=== PATIENT | female | born 1955 ===

== ENCOUNTER 2017-01-16 02:46 | Emergency (ER) | payer OTHER ==
[2017-01-16 02:55] VITALS: BMI 41.1
[2017-01-16 02:59] VITALS: RESP 16; TEMP 98
--- NOTE | 2017-01-16 03:09 | ED PDOC ---
HPI: Psych/Substance Abuse Time Seen by Provider: 01/16/17 03:02 Chief Complaint (Nursing): Anxiety Chief Complaint (Provider): anxiety History Per: Patient, EMS Additional Complaint(s): BIBA for anxiety. Patient states she has no more ativan and feels very anxious. She admits to taking more of her ativan that was is actually prescribed so she is out of her meds sooner than she should be. Patient denies any suicidal or homicidal ideation, no chest pain, SOB or MONACO. Past Medical History Reviewed: Historical Data, Nursing Documentation, Vital Signs Vital Signs: Last Vital Signs Temp 98.0 F 01/16/17 02:55 Pulse 115 H 01/16/17 02:55 Resp 16 01/16/17 02:55 BP 180/107 H 01/16/17 02:55 Pulse Ox 100 01/16/17 02:55 - Medical History PMH: Anemia, Anxiety, Asthma, Bipolar Disorder, Depression, Diabetes, Emphysema , HTN, Hypercholesterolemia, Hyperlipidemia, Schizophrenia - Family History Family History: States: No Known Family Hx - Living Arrangements Living Arrangements: With Family - Social History Current smoker - smoking cessation education provided: No Alcohol: None Drugs: Denies - Home Medications Home Medications: Ambulatory Orders Medication Instructions Recorded Enalapril Maleate 10 mg PO DAILY 08/22/14 amLODIPine [Norvasc] 10 mg PO DAILY 08/22/14 metFORMIN [glucOPHAGE] 500 mg PO BID 08/22/14 traZODone [Desyrel] 200 mg PO HS 08/22/14 Benztropine [Cogentin] 2 mg PO TID #4 tab 10/08/15 Simvastatin 20 mg PO HS 10/08/15 Albuterol HFA [Ventolin HFA 90 2 puff IH Q4H PRN 11/26/15 mcg/actuation (8 g)] Esomeprazole Magnesium [Nexium] 40 mg PO DAILY 05/13/16 LORazepam [Ativan] 2 mg PO BID 05/13/16 Montelukast [Singulair] 10 mg PO HS 05/13/16 Mv,Min10/Folic Acid/D3/Ala/Lut 1 tab PO DAILY 05/13/16 [Strovite One Caplet] Risperidone [Risperdal] 4 mg PO HS 05/13/16 Azithromycin [Zithromax] 500 mg PO DAILY #5 tab 05/16/16 - Allergies Allergies/Adverse Reactions: Allergies Allergy/AdvReac Type Severity Reaction Status Date / Time No Known Allergies Allergy Verified 01/16/17 02:55 Review of Systems ROS Statement: Except As Marked, All Systems Reviewed And Found Negative Psych: Positive for: Anxiety (out of ativan). Negative for: Psychosis, Suicidal ideation Physical Exam - Reviewed Nursing Documentation Reviewed: Yes Vital Signs Reviewed: Yes - Physical Exam Appears: Positive for: Well, Non-toxic, No Acute Distress Skin: Positive for: Normal Color. Negative for: Rash Eye Exam: Positive for: Normal appearance Cardiovascular/Chest: Positive for: Regular Rate, Rhythm Respiratory: Positive for: Normal Breath Sounds Neurologic/Psych: Positive for: Alert, Oriented - ECG O2 Sat by Pulse Oximetry: 100 Pulse Ox Interpretation: Normal Medical Decision Making Medical Decision Makin61 year old with anxiety, out of ativan Rx history indicates patient filled 30 day supply of 2 mg PO ativan on 12/27/16 but she is out of the meds. She admits to taking more than prescribed which is why she is out of her meds earlier that she should be Plan: 2 mg PO ativan dose Crisis consult offered, but patient declined. She denies SI/HI. 4:15 am: Vital signs improved. Patient feels better, she is stable for discharge. She was advised to follow up RONAL with her psychiatrist. Disposition - Clinical Impression Clinical Impression: Anxiety - Patient ED Disposition Is Patient to be Admitted: No Counseled Patient/Family Regarding: Diagnosis, Need For Followup - Disposition Referrals: [facility] [Outside] Disposition: Routine/Home Disposition Time: 04:14 Condition: STABLE Additional Instructions: Follow-up as soon as possible with your psychiatrist. Instructions: Anxiety (ED) Forms: [employer] (Turkmen) Print Language: KINYARWANDA
[2017-01-16 04:55] VITALS: BP 167/93; PULSE 98
[2017-01-16 05:02] VITALS: O2SAT 100
== END 2017-01-16 04:58 | disposition home or self-care (01) ==
LOC: H.ER 02:46
DX: F41.9 Anxiety disorder, unspecified (principal); E11.9 Type 2 diabetes mellitus without complications; E78.00 Pure hypercholesterolemia, unspecified; F20.9 Schizophrenia, unspecified; F31.9 Bipolar disorder, unspecified; I10 Essential (primary) hypertension; J43.9 Emphysema, unspecified; J45.909 Unspecified asthma, uncomplicated; Z79.84 Long term (current) use of oral hypoglycemic drugs

== ENCOUNTER 2017-01-20 13:33 | Emergency (ER) | payer MEDICARE, OTHER ==
[2017-01-20 13:33] VITALS: BMI 34.1
[2017-01-20 13:41] VITALS: TEMP 98.4
[2017-01-20 14:40] LABS: BASO % 0.5 % (0.0-2.0); EOS % 0.3 % (0.0-4.0); HEMATOCRIT 40.1 % (34.0-47.0); LYMPH # 1.5 K/uL (1.0-4.3); LYMPH % 17.5 % (20.0-40.0); MEAN CELL VOLUME 86.3 fl (81.0-99.0); MEAN CORPUSCULAR HEMOGLOBIN 29.3 pg (27.0-31.0); MEAN PLATELET VOLUME 7.5 fl (7.2-11.7); MONO # 0.7 K/uL (0.0-0.8); MONO % 7.7 % (0.0-10.0); NEUT # 6.5 K/uL (1.8-7.0); RED CELL DISTRIBUTION WIDTH 13.7 % (11.5-14.5); WHITE BLOOD COUNT 8.8 K/uL (4.8-10.8)
[2017-01-20 14:54] LABS: ALB/GLOB RATIO 1.4 (1.0-2.1); ALCOHOL SERUM < 10 mg/dl (0-10); ALKALINE PHOSPHATASE 86 U/L (38-126); ALT/SGPT 50 U/L (9-52); AST/SGOT 38 U/L (14-36); BILIRUBIN,TOTAL 0.9 mg/dl (0.2-1.3); BLOOD UREA NITROGEN 6 mg/dl (7-17); CALCIUM 9.9 mg/dL (8.4-10.2); CARBON DIOXIDE 25 mmol/L (22-30); CHLORIDE 98 mmol/L (98-107); GFR AFRICAN-AMERICAN > 60; GLUCOSE,RANDOM 123 mg/dL (65-105); SODIUM 135 mmol/l (132-148); TOTAL PROTEIN 7.9 G/DL (6.3-8.2)
[2017-01-20 15:03] LABS: URINE BILIRUBIN NEGATIVE (NEGATIVE); URINE BLOOD SMALL (NEGATIVE); URINE COLOR STRAW (YELLOW); URINE GLUCOSE (UA) NEG (Normal); URINE KETONE NEGATIVE (NEGATIVE); URINE LEUKOCYTE ESTERASE NEG Leu/uL (Negative); URINE PROTEIN 30 mg/dL (NEGATIVE); URINE UROBILINOGEN 0.2-1.0 mg/dL (0.2-1.0); WBC URINE 1 /hpf (0-5)
--- NOTE | 2017-01-20 15:31 | RAD ---
HISTORY: clearance COMPARISON: 05/15/2016. FINDINGS: LUNGS: The lungs are clear. PLEURA: No significant pleural effusion identified, no pneumothorax apparent. CARDIOVASCULAR: The heart is normal in size. Atherosclerotic aortic arch calcifications are present. OSSEOUS STRUCTURES: No significant abnormalities. VISUALIZED UPPER ABDOMEN: Normal. OTHER FINDINGS: None. IMPRESSION: No active pulmonary disease.
[2017-01-20 15:35] LABS: RBC URINE 8 /hpf (0-3)
--- NOTE | 2017-01-20 16:52 | ED PDOC ---
HPI: Psych/Substance Abuse Time Seen by Provider: 01/20/17 13:55 Chief Complaint (Nursing): Psychiatric Evaluation History Per: Patient Additional Complaint(s): Pt. states she's felt very anxious and jittery since the weekend. States she is also having hallucinations but does not want to report what type of hallucinations. Pt. states she needs to stay in the hospital. States she lost her Lorazepam and symptoms have been ongoing since then. As per pt.'s daughter, Tracie, pt. began talking to herself today and has been extremity anxious. Denies SI/HI. Offers no physical complaints at this time. Past Medical History Reviewed: Historical Data, Nursing Documentation, Vital Signs Vital Signs: Last Vital Signs Temp 98.4 F 01/20/17 13:35 Pulse 110 H 01/20/17 13:35 Resp 18 01/20/17 13:35 BP 220/102 H 01/20/17 13:35 Pulse Ox 99 01/20/17 13:35 - Medical History PMH: Anemia, Anxiety, Asthma, Bipolar Disorder, Depression, Diabetes, Emphysema , HTN, Hypercholesterolemia, Hyperlipidemia, Schizophrenia Denies: Chronic Kidney Disease - Family History Family History: States: Unknown Family Hx - Immunization History Hx Tetanus Toxoid Vaccination: Yes (not sure) Hx Influenza Vaccination: Yes (not sure) Hx Pneumococcal Vaccination: Yes (not sure) - Home Medications Home Medications: Ambulatory Orders Medication Instructions Recorded metFORMIN [glucOPHAGE] 500 mg PO BID 08/22/14 traZODone [Desyrel] 200 mg PO HS 08/22/14 Benztropine [Cogentin] 2 mg PO TID #4 tab 10/08/15 Albuterol HFA [Ventolin HFA 90 2 puff IH Q4H PRN 11/26/15 mcg/actuation (8 g)] LORazepam [Ativan] 2 mg PO BID 05/13/16 Montelukast [Singulair] 10 mg PO HS 05/13/16 Risperidone [Risperdal] 4 mg PO HS 05/13/16 Famotidine [Pepcid] 20 mg PO BID #20 tab 01/18/17 Ondansetron ODT [Zofran ODT] 1 odt PO BID PRN #6 odt 01/18/17 Sucralfate [Carafate] 1 gm PO BID #20 tab 01/18/17 Aspirin [Ecotrin] 81 mg PO DAILY 01/20/17 Ergocalciferol (Vitamin D2) 50,000 unit PO QWK 01/20/17 [Vitamin D2] Esomeprazole Magnesium [Nexium] 40 mg PO DAILY 01/20/17 Ferrous Sulfate [Feosol] 325 mg PO TID 01/20/17 Fluticasone/Salmeterol 250/50 1 puff IH Q12H 01/20/17 [Advair Diskus 250/50] - Allergies Allergies/Adverse Reactions: Allergies Allergy/AdvReac Type Severity Reaction Status Date / Time No Known Allergies Allergy Verified 01/18/17 18:33 Review of Systems ROS Statement: Except As Marked, All Systems Reviewed And Found Negative Psych: Positive for: Anxiety Physical Exam - Reviewed Nursing Documentation Reviewed: Yes Vital Signs Reviewed: Yes - Physical Exam Appears: Positive for: Well, Non-toxic, No Acute Distress Head Exam: Positive for: ATRAUMATIC, NORMAL INSPECTION, NORMOCEPHALIC Skin: Positive for: Normal Color, Warm. Negative for: Rash Eye Exam: Positive for: EOMI, Normal appearance, PERRL ENT: Positive for: Normal ENT Inspection Neck: Positive for: Normal, Painless ROM Cardiovascular/Chest: Positive for: Regular Rate, Rhythm Respiratory: Positive for: CNT, Normal Breath Sounds Gastrointestinal/Abdominal: Positive for: Normal Exam, Bowel Sounds, Soft. Negative for: Tenderness Back: Positive for: Normal Inspection Extremity: Positive for: Normal ROM Neurologic/Psych: Positive for: Alert, Oriented, Mood/Affect (easily agitated but consolable). Negative for: Aphasia, Facial Droop - Laboratory Results Result Diagrams: 01/20/17 14:34 01/20/17 14:34 - ECG O2 Sat by Pulse Oximetry: 99 - Progress ED Course And Treament: Labs ordered. Crisis evaluation ordered. Pt. placed on 1:1. Pt.'s pharmacy contacted and report that pt. has not refilled her Lisinopril 10mg and norvasc 10mg since 11/2016. Pt. states she does not remember the last time she took her BP meds and it has been at least 5 days since she last took it. Lisinopril 10mg, norvasc 10mg, ativan 2mg PO ordered. Pt.'s daughter, Tracie, called ED who informed me that pt. has had worsening anxiety since she has lost her Lorazepam and today her noticed that she was talking to herself. Also reports that pt. regularly does have a resting tremor. On re-evaluation, pt. calm and cooperative and tremor has improved. Pt. states she is feeling much better. Repeat BP: 148/68. Pending crisis evaluation. Disposition - Clinical Impression Clinical Impression: Anxiety - Patient ED Disposition Is Patient to be Admitted: Transfer of Care (Signed out Angelica FLOR[facility] pending crisis evaluation.) - Disposition Disposition Time: 20:00 Condition: IMPROVED Instructions: Anxiety (ED) Print Language: IRANIAN
[2017-01-20 17:54] VITALS: PULSE 92; RESP 18
[2017-01-20 20:26] VITALS: BP 111/74
--- NOTE | 2017-01-20 20:46 | ED PDOC ---
- Laboratory Results Result Diagrams: 01/20/17 14:34 01/20/17 14:34 - ECG O2 Sat by Pulse Oximetry: 98 - Progress ED Course And Treament: Case endorsed to global technical writer from De[facility] FL[facility] pending crisis eval [facility]; does not meet criteria for admission at this time as per Dr. Caraballo, who also did not recommend providing new Ativan rx. Family states they will take patient to outpatient services tomorrow. Return to ED for worsening/concerning symptoms. Disposition - Clinical Impression Clinical Impression: Anxiety - POA Present On Arrival: None - Disposition Disposition: Routine/Home Disposition Time: 20:47 Condition: IMPROVED Instructions: Anxiety (ED) Print Language: PRYDEINIG
--- NOTE | 2017-01-21 07:42 | CARD ---
APPROVED REPORT EKG Measurement Heart [id number] <Conclusion> Normal sinus rhythm Normal ECG
[2017-01-21 14:57] VITALS: O2SAT 99
== END 2017-01-20 21:09 | disposition home or self-care (01) ==
LOC: H.ER 13:33
DX: F41.9 Anxiety disorder, unspecified (principal); F20.9 Schizophrenia, unspecified; E11.9 Type 2 diabetes mellitus without complications; E78.00 Pure hypercholesterolemia, unspecified; F31.9 Bipolar disorder, unspecified; I10 Essential (primary) hypertension; J43.9 Emphysema, unspecified; Z79.82 Long term (current) use of aspirin; Z79.84 Long term (current) use of oral hypoglycemic drugs; R25.1 Tremor, unspecified
CPT/HCPCS: 71010; 80053; 81003; 85025; 93005; 99283; G0480